=== PATIENT | male | born 1935 | race Caucasian/White ===

== ENCOUNTER → 2024-05-12 14:14 | Outpatient (REF) | payer OTHER, SELFPAY | LOC: RAD 14:14 | PROVIDERS: ATTENDING PHYSICIAN Surgery; FAMILY PHYSICIAN Internal Medicine | DX: K40.90 Unilateral inguinal hernia, without obstruction or gangrene, not specified as recurrent (principal) | CPT/HCPCS: 74177; Q9967 ==

== ENCOUNTER 2024-06-26 06:17 | Day surgery (SDC) | payer OTHER, SELFPAY ==
[2024-06-26] VITALS (10 sets, daily range): BP systolic 94–157; BP diastolic 57–89; BMI 32.4
[2024-06-26] MEDS: TYLENOL 1000 MG PO (08:05)
--- NOTE | 2024-06-26 11:37 | W.IMMPOSTOP ---
Surgical Immed Post Op Note
-
Primary Surgeon: Cara
Assisting: Bebo MANRIQUEZ
Pre-op Diagnosis: Left ingunal hernia
Post-op Diagnosis: Same
Procedure Performed: Robot assisted laparoscopic repair left inguinal hernia
Anesthesia Type: GETA
Specimen / Cultures: None
Estimated Blood Loss: 5cc
Complications: None immediate
Operative Findings: Large indirect defect totally reduced; XL MID 3D Max
--- NOTE | 2024-06-26 11:38 | OR.RPT ---
Operative Report
Operative Report
Primary Surgeon: Cara
Assisting: Bebo MANRIQUEZ
Pre-op Diagnosis: Left inguinal hernia
Post-op Diagnosis: Same
Procedure Performed: Robot assisted laparoscopic repair left inguinal hernia
Anesthesia Type: GETA
Specimen / Cultures: None
Estimated Blood Loss: 5cc
Complications: None immediate
Operative Findings: Large indirect defect totally reduced; XL MID 3D Max
Date of surgery: 06/26/24
Indications:� This 89M developed a symptomatic left inguinal hernia. Robot assisted laparoscopic repair was planned.
Description of procedure:� The patient was taken to the operating room and positioned into supine position. The patient�s abdomen was prepped and draped in standard sterile fashion. A time-out was completed verifying correct patient, procedure,
site, positioning, and implants and special equipment prior to beginning this procedure.
The left groin hernia was manually reduced. A stab incision was made in the left upper quadrant, a Veress needle was inserted and proper position was confirmed by aspiration and saline drop test. Following this, pneumoperitoneum was created with
insufflation of carbon dioxide to 12 mmHg. Then a 8mm robotic trocar was inserted above and to the left of the umbilicus. A laparoscope was inserted and the area of initial trocar entry and Veress needle placement were both inspected and no injuries
were found. Two 8mm trocars were then placed lateral to the rectus sheath under direct visualization.
Both inguinal regions were inspected and the median umbilical ligament, medial umbilical ligament, and lateral umbilical fold were identified. The peritoneum was incised transversely above the defect and a flap was developed in the caudad direction.
Navi�s ligament was identified ultimately dissected to its junction with the iliac vein and the space of Retzius was developed bluntly.�The dissection was continued inferiorly to the iliopubic tract, with care taken to avoid injury to the femoral
branch of the genitofemoral nerve and the lateral femoral cutaneous nerve. The cord structures were parietalized.
The direct space was inspected and no hernia defect was identified. The femoral space was inspected no defect was identified.� The indirect space was inspected and a hernia was identified and reduced by gentle traction. The large deep sac was
totally reduced.The canal was inspected and no cord lipoma was identified.
Extra large left MID 3D max mesh was passed through a trocar. The mesh was placed into the preperitoneal space and moved into position to lay flat and completely cover the direct, indirect, and femoral spaces with overlap at the midline. The mesh
was secured into place using 2-0 vicryl suture to Navi�s ligament medially and laterally. Care was taken to avoid the inferolateral triangles containing the iliac vessels and genital nerves. The peritoneal flap was closed over the mesh and secured
with 2-0 monocryl stratafix suture in similar positions of safety. A 14g angiocath was used to decompress the preperitoneal space revealing good seal and all mesh in good position without folding or curling.
After ensuring adequate hemostasis, the trocars were removed and the pneumoperitoneum allowed to escape. The trocar incisions were closed at the skin level using 4-0 monocryl and topical skin adhesive. All counts were correct and the patient
tolerated the procedure well and was taken to the postanesthesia care unit in stable condition.
== END 2024-06-26 14:03 | disposition home or self-care (01) ==
LOC: SDS 06:17
PROVIDERS: ATTENDING PHYSICIAN Surgery; FAMILY PHYSICIAN Internal Medicine
DX: K40.90 Unilateral inguinal hernia, without obstruction or gangrene, not specified as recurrent (principal)
CPT/HCPCS: 49650; C1781

== ENCOUNTER 2025-01-15 09:29 | Inpatient (IN) | payer OTHER, SELFPAY ==
--- NOTE | 2024-12-18 13:03 | CM ---
CM left message for patient.
--- NOTE | 2024-12-18 13:19 | CM ---
Addendum entered by Nicole Hussein RN 01/03/25 14:31:
CM spoke with patient's . is requesting assistance with finding a hip chair. CM provided patient with number to [employer]. will follow up with DME company.
Original Note:
CM reviewed medical records. Patient confirmed demographics. Patient lives independently with . Patient is not currently on service with a home care agency. Patient does not have a history of VN. Patient would be agreeab to [facility] if needed.
Patient has a walker, cane. CM encouraged and patient to purchase recommended DME as per [employer] education sheet. Patient is active with his PCP. Patient uses [facility] pharmacy.
Patient plans to make an appointment with Nathalia Garcia, PT for 01/17.
CM encouraged bowel regiment and hydration pre-operatively.
PLAN: Home with outpatient PT.
[2024-12-29 14:07] LABS: Hemoglobin 11.8 g/dL (13.0-18.0); Mean Corp Hgb Conc. 33.7 g/dL (33.0-37.0); Mean Corpuscular Hgb 29.8 pg (27.0-31.0); Mean Corpuscular Volume 88.4 fL (80.0-94.0); Mean Platelet Volume 10.1 fL (7.4-10.4); Platelet Count 353 10^3/uL (130-400); Red Blood Cell Count 3.96 10^6/uL (4.70-6.10); Red Cell Dist. Width 13.8 % (11.5-14.5); White Blood Cell Count 9.2 10^3/uL (4.8-10.8)
[2024-12-29 14:08] VITALS: BMI 35.0
[2024-12-29 14:18] LABS: ALT (SGPT) 12 U/L (0-50); AST (SGOT) 19 U/L (17-59); Albumin 4.2 g/dl (3.5-5.0); Alkaline Phosphatase 94 U/L (38-126); Blood Urea Nitrogen 29 mg/dl (9-20); Calcium 9.2 mg/dl (8.4-10.2); Carbon Dioxide 25 mmol/L (22-30); Chloride 107 mmol/L (98-107); Estimated Creatinine Clearance 37 ml/min; Glucose 88 mg/dl (70-99); Potassium 4.4 mmol/L (3.5-5.1); Sodium 139 mmol/L (135-145); Total Bilirubin 0.6 mg/dl (0.2-1.3); Total Protein 7.4 g/dl (6.3-8.2); eGFR 48.65
[2024-12-29 14:33] LABS: Glycohemoglobin (HgbA1c) 5.7 % (4.0-5.6)
[2025-01-02 08:06] VITALS: BMI 35.0
[2025-01-15] VITALS (31 sets, daily range): BP systolic 80–145; BP diastolic 50–79; BMI 35.0
[2025-01-15] MEDS: TYLENOL 650 MG PO ×3 (10:05→23:32)
[2025-01-15] MEDS: CELEBREX 200 MG PO (10:05)
[2025-01-15] MEDS: NORMOSOL-R/PLASMALYTE-A 1000 IV (10:05)
--- NOTE | 2025-01-15 12:21 | W.PN.UPDATE ---
Update Note
Progress Note Update
R EUSEBIO w/ Dr Nettles 01/15/25
DVT prophylaxis - ASA, b/l venous foot pumps
HTN - + parameters - monitor BP
PACs - monitor on tele
CKD stage 3 - minimize nephrotoxins as able
BPH w/ urinary retention - monitor voids and PVRs
- Continue Doxazosin w/o interruption
Remote tobacco abuse
Hyperlipidemia
Peripheral edema
[2025-01-15] MEDS: DILAUDID 0.5 MG IV (13:52)
[2025-01-15] MEDS: NSS 1000 IV (14:04)
[2025-01-15] MEDS: DILAUDID 0.25 MG IV (14:09)
--- NOTE | 2025-01-15 16:40 | PTCARENOTE ---
Pt arrived to 2S in bed. Pt drowsy but easily arouses to verbal stimuli, when left alone pt falls back to sleep. Telemetry applied. Nasal cannula maintained. R hip DSG with a scant amount of drainage noted. Pt with decreased movement to RLE,
neurovascular assessment otherwise WDL. IVF infusing per order. Bed locked and in the lowest position, safety maintained. Oriented to room and call santo, family at bedside.
[2025-01-15] MEDS: ProAmatine 5 MG PO (17:37)
[2025-01-15] MEDS: ASPIRIN 325 MG PO (17:38)
[2025-01-15] MEDS: LIPITOR 10 MG PO (17:38)
[2025-01-15] MEDS: ANCEF 5 IV (19:55)
[2025-01-15] MEDS: BACTROBAN 2% OINTMENT 1 APPLIC NASAL (19:56)
[2025-01-15] MEDS: SENOKOT 17.2 MG PO (19:56)
[2025-01-15] MEDS: COLACE 100 MG PO (19:56)
[2025-01-15] MEDS: DECADRON 4 MG PO (19:56)
[2025-01-15] MEDS: PEPCID 20 MG PO (21:35)
[2025-01-15] MEDS: NEURONTIN 300 MG PO (21:35)
[2025-01-15] MEDS: ULTRAM 50 MG PO (23:57)
[2025-01-16 03:00] VITALS: BP 112/70
[2025-01-16] MEDS: ANCEF 5 IV (03:01)
[2025-01-16] MEDS: TYLENOL PO ×2 (03:01→03:06)
[2025-01-16 07:35] VITALS: BP 108/70
[2025-01-16] MEDS: ASPIRIN 325 MG PO (08:09)
[2025-01-16] MEDS: ProAmatine 5 MG PO (08:09)
[2025-01-16] MEDS: CARDURA 4 MG PO (08:09)
[2025-01-16] MEDS: SENOKOT 17.2 MG PO (08:09)
[2025-01-16] MEDS: TYLENOL 650 MG PO (08:10)
[2025-01-16] MEDS: LIPITOR 10 MG PO (08:10)
[2025-01-16] MEDS: DECADRON 4 MG PO (08:10)
[2025-01-16] MEDS: COLACE 100 MG PO (08:10)
[2025-01-16] MEDS: BACTROBAN 2% OINTMENT 1 APPLIC NASAL (08:10)
[2025-01-16 09:20] VITALS: BP 108/73; BP 128/70; PULSE 76; PULSE 96
--- NOTE | 2025-01-16 09:55 | W.PN.ORTHO ---
Today's Communication / Plan
-
Await PT and OT recs.
D/c later today if remaining clinically stable.
Assessment
.
Dressing:
Trace areas of old incisional bleeding. Dressing otherwise C/D/I.
Assessment:
Samina KAPLAN w/ Dr Nettles 01/15/25
DVT prophylaxis - ASA, b/l venous foot pumps
Intra-op hypotension requiring pressor support - BPs improved post-op w/ Midodrine, IVF, minimization of opioids
HTN - + parameters - BPs overall stable post-op
PACs - maintaining NSR w/ 1st deg AV block on tele
CKD stage 3 - continue to minimize nephrotoxins as able
BPH w/ urinary retention - voiding appropriately w/ low PVRs prior to d/c
- Continue Doxazosin w/o interruption
Remote tobacco abuse
Hyperlipidemia
Peripheral edema
Plan
.
Surgery / Date: Samina KAPLAN w/ Dr Nettles 01/15/25
DVT Prophylaxis: Aspirin
Activity:
Out of bed.
PT/OT
Discharge Plan: Home w/ Outpatient PT
Subjective
.
.:
Patient resting comfortably in bed.
R hip pain tolerable w/ minimal pain meds.
Denies any new significant complaints.
Eager for potential d/c today.
Vital Signs and Labs
.
Vital Signs and Labs:
Lab Results
12/29/24 13:01
12/29/24 13:01
Temp Pulse Resp BP Pulse Ox
97.5 F 80 16 108/70 96
01/16/25 07:35 01/16/25 08:09 01/16/25 07:35 01/16/25 08:09 01/16/25 07:35
Non-invasive Hgb result: 10.3
Physical Exam
-
HEENT: No pallor, cyanosis, or jaundice. Throat clear.
NECK: Supple. No JVD.
RESPIRATORY: Lungs clear to auscultation.
CVS: S1, S2 normal. RRR.�
ABDOMEN: Soft, non-tender. No distension.
EXTREMITIES: Strength equal, no calf pain with palpation/dorsiflexion. Calves soft.
BRACER: AOx3. No focal deficits. senior energy analyst grossly intact
--- NOTE | 2025-01-16 10:05 | W.DS.TRANS ---
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
-
Discharge Instructions:
Sleep Apnea Risk Intermediate
Discharge Diagnosis/Procedures R hip OA s/p R EUSEBIO w/ Dr Nettles 01/15/25
Diet Regular
Activity With Walker,With assistance
Additional Activity Adequate hydration, minimize opioid, and wear
TEDs stockings to prevent low blood pressure/
dizziness.
Driving Restrictions Not until seen by your Dr
Bathing Restrictions OK to Shower
Other Services PT
Wound Care Dressing to be removed 1 week post-surgery.
Herb to be removed at 2 week follow-up with
surgeon's office.
Instructions:
Stand-Alone Forms: Total Hip/Knee Replacement D/C
Changes to Home Medications: Yes
Discharge Medications:
DC Medications w/original date entered in Alerts
atorvastatin 10 mg tablet 10 mg PO DAILY High Cholesterol 03/10/23
doxazosin 4 mg tablet 4 mg PO DAILY Blood Pressure 03/10/23
dexamethasone 4 mg tablet 4 mg PO BID inflammation #6 tabs 12/29/24
gabapentin 300 mg capsule 300 mg PO HS sleep/pain #10 caps 12/29/24
mupirocin 2 % topical ointment 1 applic topical BID infection prevention #1 tube 12/29/24
ondansetron 4 mg disintegrating tablet 4 mg PO Q6H PRN n/v #20 tabs 12/29/24
tramadol 50 mg tablet 50 mg PO Q6H PRN 1 tab moderate pain, 2 if severe #30 tabs 12/29/24
acetaminophen 500 mg tablet (Acetaminophen Extra Strength) 1,000 mg (2 x 500 mg) PO Q6H #60 tabs 01/16/25
aspirin 325 mg tablet 325 mg PO DAILY #30 tabs 01/16/25
docusate sodium 100 mg capsule 100 mg PO BID #30 caps 01/16/25
furosemide 20 mg tablet 20 mg PO DAILY Fluid Retention/Swelling #1 tab 01/16/25
lisinopril 20 mg tablet 20 mg PO DAILY Blood Pressure #1 tab 01/16/25
sennosides 8.6 mg tablet (Deanne-tamika) 17.2 mg (2 x 8.6 mg) PO BID #30 tabs 01/16/25
Home Medication Changes
dexamethasone 4 mg tablet 4 mg PO BID inflammation #6 tabs 12/29/24
gabapentin 300 mg capsule 300 mg PO HS sleep/pain #10 caps 12/29/24
mupirocin 2 % topical ointment 1 applic topical BID infection prevention #1 tube 12/29/24
ondansetron 4 mg disintegrating tablet 4 mg PO Q6H PRN n/v #20 tabs 12/29/24
tramadol 50 mg tablet 50 mg PO Q6H PRN 1 tab moderate pain, 2 if severe #30 tabs 12/29/24
acetaminophen 500 mg tablet (Acetaminophen Extra Strength) 1,000 mg (2 x 500 mg) PO Q6H #60 tabs 01/16/25
aspirin 325 mg tablet 325 mg PO DAILY #30 tabs 01/16/25
docusate sodium 100 mg capsule 100 mg PO BID #30 caps 01/16/25
sennosides 8.6 mg tablet (Deanne-tamika) 17.2 mg (2 x 8.6 mg) PO BID #30 tabs 01/16/25
Pending Results: No
[2025-01-16 10:07] VITALS: BP 106/57; BP 112/63; PULSE 76; O2SAT 96
[2025-01-16 11:38] VITALS: BP 96/57
== END 2025-01-16 11:53 | disposition home or self-care (01) | DRG 470 ==
LOC: 2 SOUTH 09:29
PROVIDERS: ADMITTING PHYSICIAN Specialist; FAMILY PHYSICIAN Internal Medicine; REFERRING PHYSICIAN Internal Medicine Cardiovascular Disease
PROC: 0SR90JA Replacement of Right Hip Joint with Synthetic Substitute, Uncemented, Open Approach (ICD-10-PCS; 2025-01-15)
DX: M16.11 Unilateral primary osteoarthritis, right hip (principal); E66.9 Obesity, unspecified; Z68.35 Body mass index [BMI] 35.0-35.9, adult; Z87.891 Personal history of nicotine dependence; N18.30 Chronic kidney disease, stage 3 unspecified; I12.9 Hypertensive chronic kidney disease with stage 1 through stage 4 chronic kidney disease, or unspecified chronic kidney disease; N40.1 Benign prostatic hyperplasia with lower urinary tract symptoms; R33.8 Other retention of urine; E78.5 Hyperlipidemia, unspecified; I95.89 Other hypotension; I49.1 Atrial premature depolarization
CPT/HCPCS: 36415; 73502; 80053; 83036; 85027; 86850; 86900; 86901; 87070; 97110; 97162; 97166; 97535; C1713; C1776; P9045

== ENCOUNTER 2025-05-13 18:57 | Emergency (ER) | payer OTHER, SELFPAY ==
[2025-05-13 19:04] VITALS: BP 171/96; BMI 33.3
[2025-05-13 19:30] VITALS: BP 167/93
[2025-05-13 19:34] LABS: Hematocrit 37.2 % (39.0-52.0); Hemoglobin 12.5 g/dL (13.0-18.0); Mean Corp Hgb Conc. 33.6 g/dL (33.0-37.0); Mean Corpuscular Volume 86.3 fL (80.0-94.0); Nucleated Red Blood Cells % 0 % (-); Platelet Count 308 10^3/uL (130-400); Red Cell Dist. Width 13.6 % (11.5-14.5)
[2025-05-13 19:47] LABS: ALT (SGPT) 16 U/L (0-50); AST (SGOT) 20 U/L (17-59); Albumin 4.3 g/dl (3.5-5.0); Alkaline Phosphatase 94 U/L (38-126); Blood Urea Nitrogen 31 mg/dl (9-20); Calcium 9.5 mg/dl (8.4-10.2); Carbon Dioxide 26 mmol/L (22-30); Chloride 105 mmol/L (98-107); Estimated Creatinine Clearance 34 ml/min; Glucose 122 mg/dl (70-99); Potassium 4.7 mmol/L (3.5-5.1); Sodium 137 mmol/L (135-145); Total Protein 7.6 g/dl (6.3-8.2); eGFR 44.50
[2025-05-13 20:01] LABS: Troponin I < 0.012 ng/ml
--- NOTE | 2025-05-13 20:15 | ED.GENMED ---
History of Present Illness
General
Chief Complaint: Chest Pain
Source: patient and spouse
Time Seen by Provider: 05/13/25 20:05
History of Present Illness
History of Present Illness:
This patient is an 89-year-old male who presents emergency department central chest pain specifically noted with a deep breath. This started about 3-1/2 hours ago and continues. Pain is only noted when he takes a deep breath. He denies radiation.
He does not feel short of breath, although this is in contrast to triage, I clarified with him and he specifically states he is not breathless.. He denies fever, chills, nausea, vomiting, cough, sore throat, rhinorrhea, increasing in baseline leg
swelling, recent immobilization, recent trauma. He is a non-smoker, no history of DVT. Patient denies history of CAD.
Past History
Past History
ED Past Medical History: Other (Hypertension, hypercholesterolemia, BPH, CKD)
ED Past Surgical History: Other (Hernia)
Social History
Tobacco: Former smoker
Alcohol: Occasional
Drug: None
Personal:
Living: with family
Phy Exam
Physical Exam
Physical Exam:
GENERAL: Alert , in no apparent distress
EYE: pupils equal and reactive
NECK: Supple, no significant adenopathy.
ENT: o/p clr, mmm.
CARDIAC: Regular rate and rhythm .
LUNGS: Clear breath sounds bilaterally, no acute respiratory distress, no wheezes/rales/rhonchi
ABDOMEN: Soft, without focal tenderness, no r/g, no cvat
NEUROLOGICAL: Alert and oriented, no focal neuro deficits
SKIN: Warm and dry, skin intact.
MUSCULOSKELETAL: 1+ bilateral lower edema, well perfused.
PSYCH: Normal and appropriate interaction.
Scores
Heart Score for Chest Pain Patients
STEMI patient?: Not applicable
Course
Orders/Labs/Results
Orders:
Orders
05/13/25 18:58
Electrocardiogram (*1) Urgent
Reason for Study: Chest Pain
EKG- Treatment ONCE
05/13/25 19:16
Chest [CR Chest - 2 Views ] Urgent
Comment:
Reason For Exam: chest pain and SOB
05/13/25 19:24
BNP [NT-proBNP] Urgent
CMP [Comprehensive Metabolic Panel] Urgent
Complete Blood Count/With Diff Urgent
Troponin I Urgent
05/13/25 20:14
CT Chest PE Study Urgent
Comment:
Reason For Exam: pleuritic cp
05/13/25 22:14
Ketorolac [Toradol] 15 mg IV NOW STA
05/13/25 22:31
Troponin I Urgent
Abnormal Lab Results
05/13/25
19:24
WBC 13.0 H 10^3/uL
(4.8-10.8)
RBC 4.31 L 10^6/uL
(4.70-6.10)
Hgb 12.5 L g/dL
(13.0-18.0)
Hct 37.2 L %
(39.0-52.0)
Absolute Neuts (auto) 10.0 H 10^3/uL
(1.4-6.5)
Absolute Monos (auto) 1.2 H 10^3/uL
(0.1-0.6)
Neutrophils % 76.7 H %
(42.2-75.2)
Lymphocytes % 12.4 L %
(20.5-51.1)
BUN 31 H mg/dl
(9-20)
Creatinine 1.5 H mg/dL
(0.7-1.3)
Glucose 122 H mg/dl
(70-99)
05/13/25 19:24
05/13/25 19:24
Vital Signs
Initial and Last Documented VS:
Initial Vital Signs
Temp Pulse Resp BP Pulse Ox
99.2 F 97 24 171/96 97
05/13/25 19:04 05/13/25 19:04 05/13/25 19:04 05/13/25 19:04 05/13/25 19:04
Last Documented Vital Signs
Temp Pulse Resp BP Pulse Ox
99.2 F 83 17 151/79 99
05/13/25 19:04 05/13/25 20:45 05/13/25 20:45 05/13/25 20:31 05/13/25 20:45
*Pulse Oximetry
SaO2: 96
Oxygen Mode of Delivery: Room air
Patient hypoxic: no
*Critical Care Note
Total Time (30-74mins, 75-104mins- exclusive of procedures): Not Applicable
Update Note
Update Note:
Patient presents to the Emergency Department with chest pain____
Number and Complexity of Problems Addressed at the Encounter
� Chronic conditions affecting care:
� Acute Exacerbation and/or Progression of Chronic Illness:
� Differential Diagnosis includes: But not limited to pleurisy, musculoskeletal, PE, pericarditis, ACS, pneumonia, heart failure, etc.
Amount and/or Complexity of Data to be Reviewed and Analyzed
� I performed an independent evaluation of and my interpretation is:
EKG: Read by me, normal sinus rhythm with first-degree AV block, no acute ischemia, no right heart strain
CT:Upper and lower lobe respiratory motion degradation.
No central pulmonary embolism. No evidence of pulmonary artery filling defect with confidence to the proximal segmental levels in the upper and lower lobes. Respiratory motion degradation results in diminished and heterogeneous intraluminal
enhancement of the pulmonary arteries beyond the segmental levels.
Pulmonary artery branching order level of the most proximal pulmonary embolism: N/A
Trace left pleural effusion.
No pneumothorax. No evidence of pneumonia.
Xrays:
Laboratory Studies: Troponin within normal limits, BNP indeterminant, CKD at baseline essentially
Other:
� Review of other/old records reveals: Patient's most recent echo showed an EF of 60 to 65%
� Clinical information was obtained by an independent historian: who is bedside
� Prescriptions/Medications Considered but not given:
� Further testing considered but not performed:
Risk of Complications and/or Morbidity or Mortality of Patient Management
� Social determinants of health affecting care:
� Discussion with other providers (PCP, Hospitalists, Consultants, etc):
� Escalation of care including admission/observation vs risk of discharge considered: 10:14 PM reassessment patient comfortable, watching TV, nontoxic, no new symptoms, pain is minimal. Will administer Toradol, recheck troponin
continue to monitor closely.
Vitals table, no tachycardia/tachypnea, pt without sob, comfortable, watching tv, well appaering. d/w him import of f/u and rreasons to rted.
ED Attending Note
-
Portions of this chart may have been created with voice recognition software.� Occasional wrong word or��sound alike� substitutions may have occurred due to the inherent limitations of voice recognition software.
Discharge Plan
Departure
Patient Disposition: Home (Routine Discharge)
Date of Disposition: 05/13/25
Time of Disposition: 23:08
Patient with high blood pressure during this ER visit?: Yes
Condition: Good
Discharge Problem:
Chest pain
Instructions: Chest Pain PCP Follow Up, BLOOD PRESSURE
Prescriptions:
No Action
atorvastatin 10 mg Tablet
10 mg PO DAILY
doxazosin 4 mg Tablet
4 mg PO DAILY
mupirocin 2 % ointment
1 applic topical BID Qty: 1 0RF
Patient Comments:
started treatment wednesday01/12/25 and completed BID and last took 01/15/25 in am
tramadol 50 mg tablet
50 mg PO Q6H PRN (Reason: 1 tab moderate pain, 2 if severe) Qty: 30 0RF
Rx Instructions:
ongoing therapy
dexamethasone 4 mg tablet
4 mg PO BID Qty: 6 0RF
Rx Instructions:
take with food
post-op use only
gabapentin 300 mg capsule
300 mg PO HS Qty: 10 0RF
Rx Instructions:
*POST-OP USE ONLY
ondansetron 4 mg tablet,disintegrating
4 mg PO Q6H PRN (Reason: n/v) Qty: 20 0RF
Rx Instructions:
take 1/2h b/f pain med if recurrent nausea
allow to dissolve in mouth w/o water
aspirin 325 mg Tablet
325 mg PO DAILY Qty: 30 0RF
Rx Instructions:
Take daily x4 weeks for blood clot prevention
docusate sodium 100 mg Capsule
100 mg PO BID Qty: 30 0RF
sennosides [Deanne-tamika] 8.6 mg Tablet
17.2 mg PO BID Qty: 30 0RF
acetaminophen [Acetaminophen Extra Strength] 500 mg tablet
1,000 mg PO Q6H Qty: 60 0RF
Rx Instructions:
Do NOT exceed >4000 mg daily.
lisinopril 20 mg Tablet
20 mg PO DAILY Qty: 1 0RF
Rx Instructions:
HOLD IF systolic blood pressure <130 while on Tramadol.
furosemide 20 mg Tablet
20 mg PO DAILY Qty: 1 0RF
Rx Instructions:
HOLD IF systolic blood pressure <130 while on Tramadol.
Referrals:
UNKNOWN - PT DOES,NOT KNOW [Family Provider]
Activity Restrictions/Additional Instructions:
IF YOU DEVELOP INCREASING NEW OR PERSISTENT PAIN, TROUBLE BREATHING, FEVER,'S INCREASING LEG SWELLING, ABDOMINAL PAIN, VOMITING, OR OTHER WORRISOME SIGNS, PLEASE RETURN TO THE ER IMMEDIATELY! YOU SHOULD SEE YOUR DOCTOR EARLY THIS WEEK FOR
REASSESSMENT
Interventions
Interventions:
*Risk Screen - Suicide Last Done: 05/13/25 19:04
*General Assessment Last Done: 05/13/25 19:04
*Neglect/Abuse Screening Last Done: 05/13/25 19:04
*ED- Fall Risk Assessment Last Done: 05/13/25 19:04
*ED COVID-19 Vaccine History Last Done: 05/13/25 19:04
ED- Cardiac Assessment Last Done: 05/13/25 19:34
Discharge Date and Time
Print Language: MEXICAN
[2025-05-13 20:31] VITALS: BP 151/79
[2025-05-13] MEDS: TORADOL 15 MG IV (22:25)
[2025-05-13 23:03] LABS: Troponin I < 0.012 ng/ml
== END 2025-05-13 23:27 | disposition home or self-care (01) ==
LOC: EMR 18:57
PROVIDERS: EMERGENCY PHYSICIAN Emergency Medicine
DX: R07.89 Other chest pain (principal); E78.00 Pure hypercholesterolemia, unspecified; I12.9 Hypertensive chronic kidney disease with stage 1 through stage 4 chronic kidney disease, or unspecified chronic kidney disease; N18.9 Chronic kidney disease, unspecified; N40.0 Benign prostatic hyperplasia without lower urinary tract symptoms
CPT/HCPCS: 99284; 96374; 71046; 71275; 80053; 83880; 84484; 85025; 93005; Q9967